=== PATIENT | male | born 1975 | race Caucasian/White ===

== ENCOUNTER 2016-07-10 19:35 | Emergency (ER) | payer BC ==
--- NOTE | 2016-07-10 20:25 | EDM.PDOC ---
ED HPI ANIMAL BITE - General Time Seen by Provider: 07/10/16 20:00 Chief Complaint: Bite:Animal, Insect Stated Complaint: DOG BITE LT HAND Source of Information: Reports: Patient History Limitations: Reports: No limitations - History of Present Illness INITIAL COMMENTS - FREE TEXT/NARRATIVE: History of present illness: [20-year-old male presents with acute onset dog bite to hand. There is an area at the base of the fifth digit that is flat as well as a partial-thickness 1 cm little shell tribe on the lateral side of the palmar surface of the hand. Patient indicates that he was feeding his dogs when the neighbor dog who is well-known to him who often plays with his dogs came up and there was an altercation between the dogs over food. The neighbor dog attacked his ocular them and that is when his hand was injured.] Review of systems: As per history of present illness and below otherwise all systems reviewed and negative. Past medical history: As per history of present illness and as reviewed below otherwise noncontributory. Surgical history: As per history of present illness and as reviewed below otherwise noncontributory. Social history: No reported history of drug or alcohol abuse. Family history: As per history of present illness and as reviewed below otherwise noncontributory. Physical exam: HEENT: Atraumatic, normocephalic, pupils reactive, negative for conjunctival pallor or scleral icterus, mucous membranes moist, throat clear, neck supple, nontender, trachea midline. Lungs: Clear to auscultation, breath sounds equal bilaterally, chest nontender. Heart: S1S2, regular, negative for clicks, rubs, or JVD. Abdomen: Soft, nondistended, nontender. Negative for masses or hepatosplenomegaly. Negative for costovertebral tenderness. Pelvis: Stable nontender. Genitourinary: Deferred. Rectal: Deferred. Extremities: Right hand with a gash at the base of the fifth digit consistent with a dog tooth, as well as a partial-thickness 1 cm little shell tribe missing from the lateral aspect of the palm. Peripheral pulses palpable, CMST is intact, negative for cords or calf pain. Neurovascular unremarkable. Neuro: Awake, alert, oriented. Cranial nerves II through XII unremarkable. Cerebellum unremarkable. Motor and sensory unremarkable throughout. Exam nonfocal. Diagnostics: [] Therapeutics: [Wound cleaned] Impression: [Dog bite] Plan: [] Definitive disposition and diagnosis as appropriate pending reevaluation and review of above. Left Hand Pain Sore (Numeric/FACES): 3 - Related Data Allergies Allergy/AdvReac Type Severity Reaction Status Date / Time No Known Allergies Allergy Verified 07/10/16 19:52 Home Meds: Home Meds Omeprazole 20 mg PO DAILY 07/10/16 [History] Past Medical History - Past Health History Medical/Surgical History: Denies Medical/Surgical History Social & Family History - Tobacco Use Smoking Status *Q: Never Smoker Second Hand Smoke Exposure: No - Caffeine Use Caffeine Use: Reports: Soda - Recreational Drug Use Recreational Drug Use: No ED ROS GENERAL - Review of Systems Review Of Systems: See Below (History of present illness) ED EXAM, ANIMAL BITE - Physical Exam Exam: See Below (The history of present illness) Course - Vital Signs Last Recorded V/S: Last Vital Signs Temp 36.2 C 07/10/16 19:53 Pulse 107 H 07/10/16 19:53 Resp 20 07/10/16 19:53 BP 145/95 H 07/10/16 19:53 Pulse Ox 95 07/10/16 19:53 Departure - Departure Time of Disposition: 20:13 Disposition: Home, Self-Care 01 Condition: good Clinical Impression: Dog bite Qualifiers: Encounter type: initial encounter Qualified Code(s): W54.0XXA - Bitten by dog, initial encounter Instructions: Animal Bite, [id number], Pain Medicine Instructions, Easy-to- Read Forms: ED Department Discharge Additional Instructions: The following information is given to patients seen in the emergency department who are being discharged to home. This information is to outline your options for follow-up care. We provide all patients seen in our emergency department with a follow-up referral. The need for follow-up, as well as the timing and circumstances, are variable depending upon the specifics of your emergency department visit. If you don't have a primary care physician on staff, we will provide you with a referral. We always advise you to contact your personal physician following an emergency department visit to inform them of the circumstance of the visit and for follow-up with them and/or the need for any referrals to a consulting specialist. The emergency department will also refer you to a specialist when appropriate. This referral assures that you have the opportunity for follow-up care with a specialist. All of these measure are taken in an effort to provide you with optimal care, which includes your follow-up. Under all circumstances we always encourage you to contact your private physician who remains a resource for coordinating your care. When calling for follow-up care, please make the office aware that this follow-up is from your recent emergency room visit. If for any reason you are refused follow-up, please contact the [facility] Emergency Department at and asked to speak to the emergency department charge nurse. Keep hand clean and dry as directed Take medication as directed Followup with primary care provider in one to 2 days You have been provided followup information for hand specialist Return to ED as needed as discussed [facility] - Plastic Surgery Professional Building [address] [place] [address], [address] [place] [address]
[2016-07-10 21:11] VITALS: BP 109/65
== END 2016-07-10 21:15 | disposition home or self-care (01) ==
LOC: MW.ED 19:35
DX: S61.452A Open bite of left hand, initial encounter (principal); W54.0XXA Bitten by dog, initial encounter; Z79.899 Other long term (current) drug therapy
CPT/HCPCS: 99283

== ENCOUNTER 2017-02-15 06:44 | Day surgery (SDC) | payer BC ==
[~2017-02-15 06:44] MED LIST: Lactated Ringers 1,000 ML IV SCH
[2017-02-15] MEDS ORDERED: Propofol 200 MG/20 ML SDV ONE ×4 (07:07→08:34)
[2017-02-15] MEDS ORDERED: fentaNYL 100 MCG/2 ML SDV ONE (07:07)
[2017-02-15] MEDS ORDERED: Lidocaine 2% 5 ML SDV ONE (07:07)
[2017-02-15] MEDS ORDERED: diphenhydrAMINE 50 MG/ML SDV ONE (07:25)
--- NOTE | 2017-02-15 07:27 | PCM.PREANE ---
Preanesthetic Assessment - Anesthesia/Transfusion/Family Hx Anesthesia History: Prior Anesthesia Without Reaction (pruritis after foot surgery, required return to ER for shot of epi, ? antibiotic as etiol) Other Type of Anesthesia Reaction Comment: states "a day after foot surgery I felt itchy all over" Transfusion History: No Prior Transfusion(s) - Review of Systems General: No Symptoms Pulmonary: No Symptoms Cardiovascular: No Symptoms Gastrointestinal: No Symptoms Neurological: No Symptoms Other: Reports: None - Physical Assessment NPO Status Date: 02/14/17 O2 Sat by Pulse Oximetry: 95 Respiratory Rate: 16 Vital Signs: Last Vital Signs Temp 36.3 C 02/15/17 06:50 Pulse 63 02/15/17 06:50 Resp 16 02/15/17 06:50 BP 107/67 02/15/17 06:50 Pulse Ox 95 02/15/17 06:50 Height: 1.88 m Weight: 112.945 kg ASA Class: 2 Mental Status: Alert & Oriented x3 Airway Class: Mallampati = 2 Dentition: Reports: Normal Dentition ROM/Head Extension: Full Lungs: Clear to Auscultation, Normal Respiratory Effort Cardiovascular: Regular Rate, Regular Rhythm - Allergies Allergies/Adverse Reactions: Allergies Allergy/AdvReac Type Severity Reaction Status Date / Time No Known Allergies Allergy Verified 07/10/16 19:52 - Acknowledgements Anesthesia Type Planned: MAC Pt an Appropriate Candidate for the Planned Anesthesia: Yes Alternatives and Risks of Anesthesia Discussed w Pt/Guardian: Yes Pt/Guardian Understands and Agrees with Anesthesia Plan: Yes PreAnesthesia Questionnaire - Past Health History Medical/Surgical History: Denies Medical/Surgical History HEENT History: Reports: Allergic Rhinitis Respiratory History: Reports: Other (See Below) Other Respiratory History: being tested for sleep apnea now Gastrointestinal History: Reports: GERD, Other (See Below) Other Gastrointestinal History: diverticulitis Endocrine/Metabolic History: Reports: Obesity/BMI 30+ - Past Surgical History Head Surgeries/Procedures: Reports: None HEENT Surgical History: Reports: Adenoidectomy, Tonsillectomy Musculoskeletal Surgical History: Reports: Other (See Below) Other Musculoskeletal Surgeries/Procedures:: rt foot surgery - SUBSTANCE USE Smoking Status *Q: Never Smoker Tobacco Use Within Last Twelve Months: Other (See Below) Second Hand Smoke Exposure: No Recreational Drug Use History: No - HOME MEDS Home Medications: Home Meds Omeprazole 20 mg PO DAILY 07/10/16 [History] Multivitamin [Multivitamins] 1 tab PO DAILY 02/10/17 [History] Ubidecarenone [Coq-10] 1 tab PO DAILY 02/10/17 [History] - CURRENT (IN HOUSE) MEDS Current Meds: Current Medications Lactated Ringer's (Ringers, Lactated) 1,000 mls @ 125 mls/hr IV ASDIRECTED TENZIN Last Admin: 02/15/17 06:54 Dose: 125 mls/hr Discontinued Medications Fentanyl (Sublimaze) Confirm Administered Dose 100 mcg .ROUTE .STK-MED ONE Stop: 02/15/17 07:08 Lidocaine (Xylocaine-Mpf 2%) Confirm Administered Dose 5 ml .ROUTE .STK-MED ONE Stop: 02/15/17 07:08 Propofol (Diprivan 20 Ml) Confirm Administered Dose 400 mg .ROUTE .STK-MED ONE Stop: 02/15/17 07:08
[2017-02-15] MEDS ORDERED: ePHEDrine 50 MG/ML SDV ONE (08:11)
--- NOTE | 2017-02-15 08:54 | PCM.OPNOTE ---
- General Post-Op/Procedure Note Date of Surgery/Procedure: 02/15/17 Operative Procedure(s): Esophagogastroduodenoscopy w/ biopsy. Colonoscopy Pre Op Diagnosis: Epigastric pain, chronic heartburn. LLQ pain, history of diverticulitis Post-Op Diagnosis: Gastritis. Pancolonic diverticulosis Anesthesia Technique: MAC (ASA II) Primary Surgeon: Yony Sarah Agricultural Services Director: David Barnes Condition: Good Free Text/Narrative:: Dictation [id number] CPT CODE [id number]
--- NOTE | 2017-02-15 09:23 | OR ---
SURGEON: Yony Sarah M.D. LEAK HUNTER: Dr. Barnes, PGY-2 DATE OF PROCEDURE: 02/15/2017 OPERATION PERFORMED: Esophagogastroduodenoscopy with biopsy. ANESTHESIA: MAC. ASA CLASSIFICATION: II. PREOPERATIVE DIAGNOSIS: Persistent progressive heartburn. POSTOPERATIVE DIAGNOSES: Gastritis. DESCRIPTION OF PROCEDURE: The patient was taken to the endoscopy room, positioned on the endoscopy table in the supine position. Time-out was called for appropriate identification of the patient and procedure. Monitored anesthesia care had been provided. The gastroscope was inserted through the bite block and advanced without difficulty through the esophagus and stomach into the duodenum where examination was now carried out in a retrograde fashion. The duodenum shows no acute inflammatory changes or ulcerations. The stomach does show a mild gastritis. Antral biopsies were obtained to look for the presence of Helicobacter pylori. The gastroscope was retroflexed to visualize the proximal stomach. No mid or proximal lesions were identified. No ulcerations were identified. The gastroscope was then straightened and slowly withdrawn carefully visualizing the greater and lesser curvatures. The GE junction was well defined and shows no acute inflammatory changes. The esophagus demonstrates good contractility. No mid or proximal lesions were identified. The vocal cords were visualized as the scope was withdrawn and noted to move symmetrically. The gastroscope was then removed with the patient having tolerated this portion of the procedure well. Following colonoscopy, he was taken to recovery room in stable condition. ZAHIRA MOLINA /[id number] [place]
[2017-02-15 09:25] VITALS: BP 105/70
--- NOTE | 2017-02-15 09:29 | OR ---
SURGEON: Yony Sarah M.D. DATE OF PROCEDURE: 02/15/2017 OPERATION PERFORMED: Colonoscopy. SALES INSPECTOR: Dr. Barnes, PGY-2. ANESTHESIA: MAC. ASA CLASSIFICATION: II. PREOPERATIVE DIAGNOSIS: Left lower quadrant pain and history of diverticulitis. POSTOPERATIVE DIAGNOSIS: Pancolonic diverticulosis. DESCRIPTION OF PROCEDURE: With the patient having completed esophagogastroduodenoscopy, he was now positioned in the left lateral decubitus position. The colonoscope was inserted into the rectum and advanced with moderate difficulty to the cecum. The colonoscope was retroflexed in the cecum to visualize the ascending colon from below. The colonoscope was then straightened and slowly withdrawn. Diverticular changes were noted throughout the entire length of the colon. The cecum, ascending colon, hepatic flexure, transverse colon, splenic flexure, descending colon, sigmoid colon, and rectum were very well visualized. There were no tumors or polyps. There was no evidence of inflammatory bowel disease. The area of most significant diverticular involvement is in the sigmoid colon. No stricture, spasm, or bleeding was noted. The colonoscope was withdrawn to the rectum and retroflexed to visualize the anal orifice from above. Again, no tumors or polyps were seen and there were no acute hemorrhoidal changes. The colonoscope was then straightened, the rectum aspirated, and the colonoscope removed. The patient tolerated the procedure well and was taken to recovery room in satisfactory condition. ZAHIRA MOLINA /[id number]
--- NOTE | 2017-02-15 10:59 | PCM.POSTAN ---
POST ANESTHESIA ASSESSMENT - MENTAL STATUS Mental Status: Alert, Oriented - RESPIRATORY Respiratory Status: Respiratory Rate WNL, Airway Patent, O2 Saturation Stable - CARDIOVASCULAR CV Status: Pulse Rate WNL, Blood Pressure Stable - GASTROINTESTINAL GI Status: No Symptoms - POST OP HYDRATION Hydration Status: Adequate & Stable
--- NOTE | 2017-02-15 10:59 | PCM48HPAN ---
Post Anesthesia Note - EVALUATION WITHIN 48HRS OF ANESTHETIC Vital Signs in Normal Range: Yes Patient Participated in Evaluation: Yes Respiratory Function Stable: Yes Airway Patent: Yes Cardiovascular Function Stable: Yes Hydration Status Stable: Yes Pain Control Satisfactory: Yes Nausea and Vomiting Control Satisfactory: Yes Mental Status Recovered: Yes
== END 2017-02-15 09:57 | disposition home or self-care (01) ==
LOC: MW.SDS 06:44
PROVIDERS: ATTEND Surgery
DX: K29.50 Unspecified chronic gastritis without bleeding (principal); K57.30 Diverticulosis of large intestine without perforation or abscess without bleeding; K21.9 Gastro-esophageal reflux disease without esophagitis; G47.33 Obstructive sleep apnea (adult) (pediatric); Z79.899 Other long term (current) drug therapy; Z98.890 Other specified postprocedural states; F17.200 Nicotine dependence, unspecified, uncomplicated
CPT/HCPCS: 43239; 45378; J1200; J3010; J7120; 00740; 88305; 88312; J2704

== ENCOUNTER 2018-01-11 21:40 | Emergency (ER) | payer BC ==
[2018-01-11] MEDS ORDERED: Lidocaine/EPINEPHrine/Tetracaine Soln 1 ML TOP ONE (22:04)
--- NOTE | 2018-01-11 22:04 | EDM.PDOC ---
<Stefani Padron E - Last Filed: 01/11/18 22:04> ED HPI GENERAL MEDICAL PROBLEM - General Chief Complaint: Laceration Stated Complaint: MY NEED STICHES IN HEAD Time Seen by Provider: 01/11/18 22:00 Source of Information: Reports: Patient History Limitations: Reports: No Limitations - History of Present Illness INITIAL COMMENTS - FREE TEXT/NARRATIVE: HISTORY AND PHYSICAL: History of present illness: Patient is a 42-year-old male who presents to the emergency room with complaints of a laceration to the top of his scalp. He states that he had cut it on some tin magno resulting in a 3.5 centimeter superficial laceration. He denies a loss of consciousness. Denies any headache, change in vision, nausea, vomiting or diarrhea. Denies any fever, chills, chest pain or shortness of breath. Tetanus is up to date. Review of systems: As per history of present illness and below otherwise all systems reviewed and negative. Past medical history: As per history of present illness and as reviewed below otherwise noncontributory. Surgical history: As per history of present illness and as reviewed below otherwise noncontributory. Social history: No reported history of drug or alcohol abuse. Family history: As per history of present illness and as reviewed below otherwise noncontributory. Physical exam: General: Well-developed and well-nourished 42-year-old male. Alert and oriented. Nontoxic appearing and in no acute distress. HEENT: 3.5 cm laceration to top of scalp, normocephalic, pupils equal and reactive bilaterally, negative for conjunctival pallor or scleral icterus, mucous membranes moist, throat clear, neck supple, nontender, trachea midline. No drooling or trismus noted. No meningeal signs Lungs: Clear to auscultation, breath sounds equal bilaterally, chest nontender. Heart: S1S2, regular rate and rhythm without overt murmur Abdomen: Soft, nondistended, nontender. Negative for masses or hepatosplenomegaly. Negative for costovertebral tenderness. Pelvis: Stable nontender. Genitourinary: Deferred. Rectal: Deferred. Skin: 3.5 centimeter laceration to top of scalp. Otherwise skin is intact, warm , dry. No lesions or rashes noted. Extremities: Atraumatic, negative for cords or calf pain. Neurovascular unremarkable. Neuro: Awake, alert, oriented. Cranial nerves II through XII unremarkable. Cerebellum unremarkable. Motor and sensory unremarkable throughout. Exam nonfocal. Notes: We did discuss doing a CT of the head which she declines. Topical let gel used to anesthetize the area. Area was thoroughly cleansed with chlorhexidine. #4 kathie used to close the wound. We discussed signs and symptoms that would prompt him to return to the emergency room and head injury instructions. Both patient and voice understanding and are agreeable to plan of care. Denies any further questions or concerns at this time. Diagnostics: None Therapeutics: LET gel, [place] Prescription: None Impression: Head Laceration Plan: 1. Keep the area clean and dry. Continue to monitor for signs of infection. [place] to be removed in approximately 10 days. 2. Tylenol and/or ibuprofen as needed for pain management. 3. Please follow-up with your primary care provider in the next 1-2 days. Return to the ED as needed and as discussed. Definitive disposition and diagnosis as appropriate pending reevaluation and review of above. Onset: Today Duration: Minutes: Location: Reports: Head - Related Data Allergies Allergy/AdvReac Type Severity Reaction Status Date / Time No Known Allergies Allergy Verified 01/11/18 22:05 Home Meds: Home Meds Omeprazole 20 mg PO DAILY 07/10/16 [History] Past Medical History - Past Health History Medical/Surgical History: Denies Medical/Surgical History HEENT History: Reports: Allergic Rhinitis Respiratory History: Reports: Other (See Below) Other Respiratory History: being tested for sleep apnea now Gastrointestinal History: Reports: GERD, Other (See Below) Other Gastrointestinal History: diverticulitis Endocrine/Metabolic History: Reports: Obesity/BMI 30+ - Past Surgical History Head Surgeries/Procedures: Reports: None HEENT Surgical History: Reports: Adenoidectomy, Tonsillectomy Musculoskeletal Surgical History: Reports: Other (See Below) Other Musculoskeletal Surgeries/Procedures:: rt foot surgery Social & Family History - Caffeine Use Caffeine Use: Reports: Soda ED ROS GENERAL - Review of Systems Review Of Systems: ROS reveals no pertinent complaints other than HPI. ED EXAM, SKIN/RASH Exam: See Below (See dictation) Course - Vital Signs Last Recorded V/S: Last Vital Signs Temp 97.4 F 01/11/18 21:40 Pulse 70 01/11/18 21:40 Resp 18 10/04/18 21:40 BP 113/80 01/11/18 21:40 Pulse Ox 95 01/11/18 21:40 - Orders/Labs/Meds Meds: Medications Discontinued Medications Generic Name Dose Route Start Last Admin Trade Name Hemanth PRN Reason Stop Dose Admin Lidocaine/Tetracaine 1 ml 01/11/18 22:04 01/11/18 22:12 Let Soln TOP 01/11/18 22:05 1 ml ONETIME ONE Administration Departure - Departure Time of Disposition: 22:03 Disposition: Home, Self-Care 01 Clinical Impression: Laceration of head Qualifiers: Encounter type: initial encounter Location of open wound of head: scalp Foreign body presence: without foreign body Qualified Code(s): S01.01XA - Laceration without foreign body of scalp, initial encounter - Discharge Information Instructions: Head Injury, Adult, [id number], Laceration Care, Adult, Easy-to -Read Referrals: PCP,None [Primary Care Provider] - Forms: ED Department Discharge Additional Instructions: The following information is given to patients seen in the emergency department who are being discharged to home. This information is to outline your options for follow-up care. We provide all patients seen in our emergency department with a follow-up referral. The need for follow-up, as well as the timing and circumstances, are variable depending upon the specifics of your emergency department visit. If you don't have a primary care physician on staff, we will provide you with a referral. We always advise you to contact your personal physician following an emergency department visit to inform them of the circumstance of the visit and for follow-up with them and/or the need for any referrals to a consulting specialist. The emergency department will also refer you to a specialist when appropriate. This referral assures that you have the opportunity for follow-up care with a specialist. All of these measure are taken in an effort to provide you with optimal care, which includes your follow-up. Under all circumstances we always encourage you to contact your private physician who remains a resource for coordinating your care. When calling for follow-up care, please make the office aware that this follow-up is from your recent emergency room visit. If for any reason you are refused follow-up, please contact the [facility] Emergency Department at and asked to speak to the emergency department charge nurse. [facility] [address] [place] [id number] 1. Keep the area clean and dry. Continue to monitor for signs of infection. [place] to be removed in approximately 10 days. 2. Tylenol and/or ibuprofen as needed for pain management. 3. Please follow-up with your primary care provider in the next 1-2 days. Return to the ED as needed and as discussed. <Jose Alejandro Sharp - Last Filed: 01/11/18 22:52> ED HPI GENERAL MEDICAL PROBLEM - General Source of Information: Reports: Patient History Limitations: Reports: No Limitations - History of Present Illness INITIAL COMMENTS - FREE TEXT/NARRATIVE: Dr. Sharp taking patient care at 2200 hrs. I've been thoroughly briefed on the patient and have reviewed all pertinent labs as well as x-ray findings. I have personally examined the patient and agree with the above. There is a 3.5 x 0.1 cm laceration to the top of the head. I was able to close the wound easily with 6 surgical kathie. As above patient was discharged with follow-up in 7-10 days for staple removal ED ROS GENERAL - Review of Systems Review Of Systems: ROS reveals no pertinent complaints other than HPI. ED EXAM, SKIN/RASH Exam: See Below
[2018-01-11] MEDS ORDERED: Bacitracin Oint 1 GM U/D Packet TOP ONE (22:54)
[2018-01-11 23:06] VITALS: BP 108/71
== END 2018-01-11 23:05 | disposition home or self-care (01) ==
LOC: MW.ED 21:40
DX: S01.01XA Laceration without foreign body of scalp, initial encounter (principal); W45.8XXA Other foreign body or object entering through skin, initial encounter; Z79.899 Other long term (current) drug therapy
CPT/HCPCS: 12002; 99282

== ENCOUNTER 2022-05-27 08:50 | Day surgery (SDC) | payer BC ==
[2022-05-27] MEDS ORDERED: Propofol 200 MG/20 ML SDV ONE ×2 (09:45→10:06)
[2022-05-27] MEDS ORDERED: Lidocaine 2% 5 ML SDV ONE (09:45)
[2022-05-27] MEDS ORDERED: Lactated Ringers 1,000 ML IV SCH (10:45)
[2022-05-27 11:47] VITALS: BP 101/52; PULSE 45
== END 2022-05-27 11:35 | disposition home or self-care (01) ==
LOC: MW.SDS 08:50
PROVIDERS: ATTEND Surgery
DX: K31.7 Polyp of stomach and duodenum (principal); K29.50 Unspecified chronic gastritis without bleeding; K57.30 Diverticulosis of large intestine without perforation or abscess without bleeding; J11.1 Influenza due to unidentified influenza virus with other respiratory manifestations; K21.9 Gastro-esophageal reflux disease without esophagitis; G47.33 Obstructive sleep apnea (adult) (pediatric); E05.90 Thyrotoxicosis, unspecified without thyrotoxic crisis or storm; F17.290 Nicotine dependence, other tobacco product, uncomplicated; E66.9 Obesity, unspecified; Z79.899 Other long term (current) drug therapy; Z98.890 Other specified postprocedural states; Z68.33 Body mass index [BMI] 33.0-33.9, adult
CPT/HCPCS: 43239; 45378; J2704; J7120; 00813; J3490